=== PATIENT | female | born 1965 | race Caucasian/White ===

== ENCOUNTER 2017-12-08 10:37 | Emergency (ER) | payer SELFPAY ==
[2017-12-08 10:42] VITALS: RESP 20; TEMP 98.2
--- NOTE | 2017-12-08 10:54 | EDPHY ---
HPI/HX/ROS/PE/MDM Narrative: CHIEF COMPLAINT: Right knee injury HPI: The patient is a 51-year-old female who fell while skiing yesterday. She complains of pain to the lateral aspect of her right knee as well as diffuse swelling. She is scheduled to fly back to [place] tomorrow and was told to get evaluated in the ED prior to flying. She complains of mild pain in her right hand as well as bruising. She denies other injury. She is able to walk on her right knee with mild pain. REVIEW OF SYSTEMS: Aside from elements discussed in the HPI, a comprehensive 10-point review of systems was reviewed and is negative. PMH:None significant. SOCIAL HISTORY:Lives in [place]. PHYSICAL EXAM: General:Patient is alert, in no acute distress. Extremities: Right knee: Mild diffuse swelling is present, no ecchymosis, skin intact. Mild TTP to lateral aspect but no pain with varus/valgus stress. Negative anterior drawer. Right hand: Mild diffuse ecchymosis on palmar aspect with no tenderness or acute deformity. Neuro: Oriented x3. Normal motor function. Normal sensory function. ED Course: 51-year-old female presents with right knee pain and swelling secondary to a ski accident yesterday. Plan for x-ray of right knee. Patient additionally complains of right hand pain and swelling, so I will x-ray the hand as well. X-ray of knee and hand are both negative for fracture. Discussed results with patient. She is relieved that there is no fracture. Plan to place patient in knee immobilizer prior to discharge. Follow up and return precautions discussed. She is comfortable with this plan. - Data Points Imaging Results: Imaging Impressions Knee X-Ray 12/08/17 10:54 Impression: Negative for fracture. Hand X-Ray 12/08/17 10:55 Impression: Negative for fracture. See above report for additional findings. Imaging: I viewed and interpreted images myself General Time Seen by Provider: 12/08/17 10:44 Initial Vital Signs: Initial Vital Signs Temperature (C) 36.8 C 12/08/17 10:40 Heart Rate 18 L 12/08/17 10:40 Respiratory Rate 20 12/08/17 10:40 Blood Pressure 123/88 H 12/08/17 10:40 O2 Sat (%) 97 12/08/17 10:40 O2 Delivery Mode Room Air Allergies/Adverse Reactions: Sulfa (Sulfonamide Antibiotics) Allergy (Verified 12/08/17 10:39) Home Medications: Medication Instructions Recorded NK [No Known Home Meds] 12/08/17 Departure - Departure Disposition: Home, Routine, Self-Care Clinical Impression: Right knee sprain Qualifiers: Encounter type: initial encounter Involved ligament of knee: unspecified ligament Qualified Code(s): S83.91XA - Sprain of unspecified site of right knee , initial encounter Condition: Good Instructions: Knee Sprain (ED) Additional Instructions: Rest, ice, elevation. Follow up with an orthopedic surgeon within one week. Return to the emergency department for worsening pain, swelling, numbness, weakness or other concerns. Wear splint for comfort, weight bear as tolerated. We recommend you take a full strength aspirin prior to your flight home. Referrals: NONE *PRIMARY CARE P,. [Primary Care Provider] - As per Instructions Stand Alone Forms: Airline Excuse Report Scribed for: Armando Toro Report Scribed by: Stacey Arshad Date of Report: 12/08/17 Time of Report: 11:51 Physician Review and Approval Statement: Portions of this note were transcribed by an ED scribe. I personally performed the history, physical exam, and medical decision making; and confirm the accuracy of the information in the transcribed note.
[2017-12-08 12:17] VITALS: BP 170/93; PULSE 79; O2SAT 96
== END 2017-12-08 12:17 | disposition home or self-care (01) ==
DX: S83.91XA Sprain of unspecified site of right knee, initial encounter (principal); V00.321A Fall from snow-skis, initial encounter; Y99.8 Other external cause status; Y93.23 Activity, snow (alpine) (downhill) skiing, snowboarding, sledding, tobogganing and snow tubing
CPT/HCPCS: L1830